=== PATIENT | male | born 1980 | race Caucasian/White ===

== ENCOUNTER 2017-01-20 13:40 | Emergency (ER) | payer MEDICAID ==
--- NOTE | 2017-01-20 14:03 | EDPHY ---
H & P Time Seen by Provider: 01/20/17 13:52 HPI/ROS: CHIEF COMPLAINT: Odontalgia HISTORY OF PRESENT ILLNESS: 36-year-old male had dental work performed yesterday on tooth 4., possible root canal though he is not completely clear and full details. He is complaining of pain. No fever no chills no nausea no vomiting. No trismus no drooling. He was not given antibiotics or analgesia. PRIMARY CARE PROVIDER: REVIEW OF SYSTEMS: A ten point review of systems was performed and is negative with the exception of the items mentioned in the HPI PHYSICAL EXAM (Prior to examination, patient consented to physical exam, hands were washed and my usual and customary physical exam procedures followed) 1) GENERAL: Well-developed, well-nourished, alert and oriented. Appears to be in no acute distress. 2) HEAD: Normocephalic 3) HEENT: sclera anicteric . Tooth 4 Tender to percussion. No signs of periapical abscess. Floor of mouth soft. 4) LUNGS: Breathing comfortably. 5) SKIN: no swelling. No discoloration Smoking Status: Heavy smoker Constitutional: Initial Vital Signs Temperature (C) 36.4 C 01/20/17 13:50 Heart Rate 71 01/20/17 13:50 Respiratory Rate 16 01/20/17 13:50 Blood Pressure 126/78 H 01/20/17 13:50 O2 Sat (%) 95 01/20/17 13:50 O2 Delivery Mode Room Air Allergies/Adverse Reactions: acetaminophen [From Vicodin] Allergy (Verified 01/20/17 13:49) hydrocodone bitartrate [From Vicodin] Allergy (Verified 01/20/17 13:49) Home Medications: Medication Instructions Recorded Amoxicillin Trihydrate 500 mg PO Q8 7 Days 01/20/17 [Amoxicillin 500mg cap] ED Images - Head Mouth: 1 - Tender to percussion MDM/Departure - MDM Procedures: Procedure: Greater palatine nerve block Indications, odontalgia Indications risks benefits discussed with patient. He consented. 0.5% bupivacaine infiltrated by myself in the usual and customary fashion achieving anesthesia. Patient tolerated procedure - Depart Disposition: Home, Routine, Self-Care Clinical Impression: Odontalgia Condition: Good Instructions: Toothache (ED) Additional Instructions: Return to the ER immediately if you cannot swallow, have drooling, fevers, neck stiffness, cannot open your jaw, or any other symptoms that concern you. Prescriptions: Amoxicillin Trihydrate [Amoxicillin 500mg cap] 500 mg PO Q8 7 Days Referrals: Follow-up, with your dentist on Sunday [Other] - 01/22/17
[2017-01-20 14:16] VITALS: BP 123/73; PULSE 77; RESP 20; TEMP 97.7; O2SAT 94
== END 2017-01-20 14:17 | disposition home or self-care (01) ==
PROC: 3E0X3BZ Introduction of Anesthetic Agent into Cranial Nerves, Percutaneous Approach (ICD-10-PCS; principal; 2017-01-20)
DX: K08.89 Other specified disorders of teeth and supporting structures (principal); F17.200 Nicotine dependence, unspecified, uncomplicated

== ENCOUNTER 2017-10-21 18:50 | Emergency (ER) | payer MEDICAID ==
[2017-10-21 18:56] VITALS: TEMP 97.5
--- NOTE | 2017-10-21 19:52 | EDPHY ---
H & P Time Seen by Provider: 10/21/17 19:24 HPI/ROS: CHIEF COMPLAINT: Dental pain HISTORY OF PRESENT ILLNESS: 37-year-old male presents to the emergency department after recent dental extraction complaining of pain. He states that he has been using an antibiotic mouthwash but is requesting an oral antibiotic. He is scheduled to see his dentist next week. ROS: Denies facial swelling, fevers, dysphagia. Past Medical/Surgical History: Negative Social History: Single and lives in [place] Smoking Status: Heavy smoker Physical Exam: On examination patient has extraction noted of his right lower 3rd molar. There is no surrounding redness or signs of abscess. There is no drainage from the extraction site. No facial swelling. No malocclusion. Afebrile. Nontoxic appearing. No cervical lymphadenopathy palpated. No submandibular lymphadenopathy. Constitutional: Initial Vital Signs Temperature (C) 36.4 C 10/21/17 18:53 Heart Rate 64 10/21/17 18:53 Respiratory Rate 18 10/21/17 18:53 Blood Pressure 128/78 H 10/21/17 18:53 O2 Sat (%) 96 10/21/17 18:53 O2 Delivery Mode Room Air Allergies/Adverse Reactions: acetaminophen [From Vicodin] Allergy (Verified 10/21/17 18:52) hydrocodone bitartrate [From Vicodin] Allergy (Verified 10/21/17 18:52) Home Medications: Medication Instructions Recorded Hydrogen Peroxide 10/21/17 Penicillin V Potassium 500 mg PO TID #30 tablet 10/21/17 MDM/Departure - MDM Medications Given: Discontinued Medications Penicillin V Potassium (Pen Vk 250 Mg Prepack#6) 1 btl [facility] EDW ONE PRN Reason: Protocol Stop: 10/21/17 19:54 Last Admin: 10/21/17 20:03 Dose: Not Given ED Course/Re-evaluation: The patient is requesting oral antibiotics. He will be given oral penicillin. He was instructed to follow up with his dentist. He is reassured that he has no signs of abscess. There is currently no drainage from the extraction site. - Depart Disposition: Home, Routine, Self-Care Clinical Impression: H/O tooth extraction Qualifiers: Tooth loss class: unspecified tooth loss Qualified Code(s): Z98.890 - Other specified postprocedural states; K08.409 - Partial loss of teeth, unspecified cause, unspecified class; K08.409 - Partial loss of teeth, unspecified cause, unspecified class Condition: Good Instructions: Tooth Extraction (DC) Additional Instructions: Penicillin as directed to prevent infection. Follow up with your dentist as discussed. Return if you develop fever, facial swelling, increasing pain, or if you feel worse in any way. Prescriptions: Penicillin V Potassium 500 mg PO TID #30 tablet Referrals: [facility] [Outside] - As per Instructions [facility] [Outside] - As per Instructions [facility] [Outside] - As per Instructions [facility] [Outside] - As per Instructions [facility] [Outside] - As per Instructions
[2017-10-21] MEDS ORDERED: PENICILLIN VK 250MG PREPACK#6 BTL TAKEHOME ONE (19:53)
[2017-10-21 20:05] VITALS: BP 119/70; PULSE 63; RESP 16; O2SAT 98
== END 2017-10-21 20:04 | disposition home or self-care (01) ==
DX: K08.409 Partial loss of teeth, unspecified cause, unspecified class (principal); F17.200 Nicotine dependence, unspecified, uncomplicated; Z98.890 Other specified postprocedural states

== ENCOUNTER 2018-12-04 13:22 | Emergency (ER) | payer MEDICAID ==
[2018-12-04] MEDS ORDERED: IBUPROFEN 200 MG TAB PO ONE (13:40)
--- NOTE | 2018-12-04 14:27 | EDPHY ---
H & P Time Seen by Provider: 12/04/18 14:06 HPI/ROS: CHIEF COMPLAINT: Left knee pain right at the base of the patella HISTORY OF PRESENT ILLNESS: This is a previously healthy 38-year-old male who states he has had episodic problems to this knee that he is having now. In the prior episodes in the past he does not recall specific injury. Nonetheless is always bothered him periodically at the base of the patella overlying the patellar ligament. He notes that Today, he took a bit of a hike [place]. He does not recall a specific injury per Se but some hour ago he started developing progressive discomfort to the anterior aspect of the inferior pole of the left patella which is markedly worse with walking and particularly going up stairs. He denies numbness or tingling pot paresthesias. There is no sense of the knee giving out. There is no tenderness over the collateral ligaments. He has not heard go click or pop. This all happened an hour ago so he has not had a chance taking ibuprofen. REVIEW OF SYSTEMS: Constitutional - no fevers or chills Musculoskeletal - no joint or muscle pain, prior to this though he has had similar symptoms in the past without prior evaluation Integument - no rashes or wounds Neurological - no numbness, tingling, or paresthesias. A 10 system review of systems was performed and is negative except for the noted findings in the HPI. Smoking Status: Heavy smoker Physical Exam: General Appearance: Alert, no distress. Afebrile. Extremities: The right knee was examined and found to be stable without any Alli's or collateral ligament laxity. There is no effusion. Per the left knee per se: No effusion. There is no tenderness to the bony margins of the patella per se until I get to the very inferior pole and particularly over the insertion of the patellar ligament into the tip of the patella itself. The Alli's is negative. Drawer sign is negative. Collateral ligaments are intact. No clicking to suggest a meniscus injury. Neurological: NV intact. Skin: Skin is intact. Warm and dry, no rashes. no lymphangitis. . Constitutional: Initial Vital Signs Temperature (C) 36.5 C 12/04/18 13:34 Heart Rate 103 H 12/04/18 13:34 Respiratory Rate 16 12/04/18 13:34 Blood Pressure 110/81 H 12/04/18 13:34 O2 Sat (%) 94 12/04/18 13:34 O2 Delivery Mode Room Air Allergies/Adverse Reactions: hydrocodone bitartrate [From Vicodin] Allergy (Verified 10/21/17 18:52) Home Medications: Medication Instructions Recorded Diclofenac Sodium [Voltaren 50 MG 50 mg PO BID #20 tab 12/04/18 (*)] Medical Decision Making ED Course/Re-evaluation: He denies any twisting injury or specific fall thus an x-ray is not indicated. Furthermore there is no effusion per se. As he has had this before is concealed days having a recurrence patellar ligament tendinitis which is conceivable in that this area tip is a healed very poorly. Unclear as to take extent he might be having femoral patellar syndrome from progressive weakness. There by I gave the following: The MO exercises to be done beginning a week from now when is not leg settle down Ibuprofen 60 mg three times daily initially. If this is not working, he is to start and replace this with Voltaren PT referral Orthopedic referral - Data Points Medications Given: Discontinued Medications Ibuprofen (Motrin) 600 mg PO EDNOW ONE Stop: 12/04/18 13:41 Last Admin: 12/04/18 13:47 Dose: 600 mg Departure - Departure Disposition: Home, Routine, Self-Care Clinical Impression: Tendonitis Condition: Good Instructions: Diclofenac (By mouth), Patellar Tendinitis (ED) Additional Instructions: Apply ice twice daily . Begin physical therapy-see referral Medications: Ibuprofen 200 mg, 3 pills 3 times a day for the next 10 days. - only switch the Voltaren if that is not working Or Voltaren 50 mg twice daily for the next 10 days Referrals: NONE *PRIMARY CARE P,. [Primary Care Provider] - As per Instructions Ayden Franco MD [Medical Doctor] - As per Instructions Stand Alone Forms: Work Limited Duty, Outpatient Rehab Request Prescriptions: Diclofenac Sodium [Voltaren 50 MG (*)] 50 mg PO BID #20 tab
[2018-12-04 15:29] VITALS: BP 104/68
== END 2018-12-04 14:58 | disposition home or self-care (01) ==
LOC: CED 13:22
DX: M76.52 Patellar tendinitis, left knee (principal); X50.0XXA Overexertion from strenuous movement or load, initial encounter; Y93.01 Activity, walking, marching and hiking; Y92.828 Other wilderness area as the place of occurrence of the external cause; F17.200 Nicotine dependence, unspecified, uncomplicated
CPT/HCPCS: 99283-ER